=== PATIENT | female | born 1990 | race Two or more races ===

== ENCOUNTER 2016-07-06 22:10 | Emergency (ER) | payer SELFPAY ==
[2016-07-07] MEDS ORDERED: ACETAMINOPHEN 500 MG TABLET ONE (01:32)
[2016-07-07] MEDS ORDERED: PREDNISONE 20 MG TABLET ONE (01:32)
== END 2016-07-07 02:23 | disposition home or self-care (01) ==
LOC: ED 22:10
DX: O98.511 Other viral diseases complicating pregnancy, first trimester (principal); J02.9 Acute pharyngitis, unspecified; B34.9 Viral infection, unspecified; Z3A.20 20 weeks gestation of pregnancy
CPT/HCPCS: 87880; 99283 ×2; J7512; A9270